=== PATIENT | male | born 1950 | race Caucasian/White ===

== ENCOUNTER 2018-08-30 11:05 | Emergency (ER) | payer OTHER ==
--- OUTSIDE RECORDS SUMMARY | 2018-08-30 11:08 | XMS REPORT | Clinical Summary ---
:1950 Author Organization [facility] Address [address] [place] [address] Care Team Providers Name Role Phone Tressa Skyler Gayle Primary Care Provider Allergies Not on File Medications Medication Sig Dispensed Refills Start Date End Date Status amLODIPine-benazepril Take 1 capsule 0 Active (LOTREL 5-10) 5-10 mg by mouth daily. per capsule aspirin 81 MG EC tablet Take 81 mg by 0 Active mouth daily. cyanocobalamin (VITAMIN Take 2,000 mcg 0 Active B-12) 2000 MCG tablet by mouth daily. ferrous sulfate (IRON Take 27 mg by 0 Active ORAL) mouth twice a week. Active Problems Not on file Encounters Date Type Specialty Care Team Description 01/13/2018 Abstract Internal Medicine Dolly Zamora after 08/29/2017 Social History Tobacco Use Types Packs/Day Years Used Date Never Smoker Smokeless Tobacco: Never Used Alcohol Use Drinks/Week oz/Week Comments Yes 7 Sex Assigned at Date Recorded Not on file Job Start Date Occupation Industry Not on file Not on file Not on file Travel History Travel Start Travel End No recent travel history available. Last Filed Vital Signs Not on file Plan of Treatment Not on file Results Not on fileafter 08/29/2017 Insurance Payer Benefit Plan / Group Subscriber ID Type Phone Address MEDICARE MEDICARE A B xxxxxxxxxx Medicare AETNA - MGD CARE AETNA HMO POS QPOS xxxxxxxxxx HMO/POS
--- OUTSIDE RECORDS SUMMARY | 2018-08-30 11:09 | XMS REPORT | Continuity of Care Document ---
:1950 Author Organization Interface Problems Problem Status Onset Classification Date Comments Source Date Reported R31.2 - OTHER Active [facility] MICROSCOPIC HEMATURIA 017 [place] ROTATOR CUFF SYNDROME, Active Condition 04/23/2014 RIGHT 014 [facility] FRACTURE, FINGER Inactive Condition 04/23/2014 014 Medical Group Rotator cuff Active Problem 08/04/2018 Data syndrome<sup>4</sup> 014 migrated Medical from [facility], [facility] on 08/17/14. [place] ARTHRITIS, LEFT WRIST Active Condition 04/23/2014 013 Medical Group HYPERLIPIDEMIA Active Condition 04/23/2014 013 Medical Group NOCTURIA Active Condition 04/23/2014 013 Medical Group Nocturia<sup>3</sup> Active Problem 08/04/2018 Data 013 migrated Medical from [facility], [facility] on 08/17/14. [place] HYPERTENSION Active Condition 04/23/2014 Medical Group ERECTILE DYSFUNCTION Active Condition 04/23/2014 Medical Group HYPERCHOLESTEROLEMIA Active Condition 04/23/2014 Medical Group Ongoing use of Active Problem 08/04/2018 possibly toxic Medical medication Group, [facility] [place] HTN - Hypertension Active Problem 08/04/2018 Medical Group, [facility] [place] Hypercholesterolemia<s Active Problem 08/04/2018 Data up>1</sup> migrated Medical from [facility], [facility] on 08/17/14. [place] Impotence<sup>2</sup> Active Problem 08/04/2018 Data migrated Medical from [facility], [facility] on 08/17/14. [place] Male erectile Active Problem 08/04/2018 dysfunction Medical Group, [facility] [place] Sciatica [facility]04[facility]2018 [facility] [place] Hematuria Active Problem 08/04/2018 Medical Group Leukopenia Active Problem 08/04/2018 Medical Group Anemia Active Problem 06/10/2016 [facility] [place] Medications Medication Details Route Status Patient Ordering Order Source Instructions Provider Date finasteride 5 mg =1 tab, PO, Active oral tablet Daily, # 90 019 Medical tab, Group Refill(s) 3, Pharmacy: [facility] tadalafil 20 MG 20 mg=1 Active Oral Tablet tab, PO, 019 Medical [Cialis] Daily, PRN Group for erectile dysfunction , Take prior to intercourse , # 13 tab, 3 Refill(s), Pharmacy: [facility] Amlodipine 5 MG 1 cap, PO, Active / Benazepril Daily, # 90 019 Medical hydrochloride 10 caplet, 3 Group MG Oral Capsule Refill(s), Pharmacy: [facility] Iron Iron, See Active Instruction 019 Medical s, 27 mg PO Group Twice Weekly, Refill(s) 0 tadalafil 20 MG 20 mg=1 Active Oral Tablet tab, PO, 018 Medical [Cialis] Daily, PRN Group for erectile dysfunction , Take prior to intercourse , # 13 tab, 3 Refill(s), Pharmacy: [facility] Amlodipine 5 MG See Active / Benazepril Instruction 018 Medical hydrochloride 10 s, TAKE 1 Group MG Oral Capsule CAPSULE DAILY, # 90 tab, 3 Refill(s), Pharmacy: [facility] Dutasteride 0.5 0.5 mg=1 Active MH MG Oral Capsule cap, PO, 017 Medical [Avodart] Daily, # 90 Group cap, 3 Refill(s), Pharmacy: [facility] MELOXICAM 15 MG 1 daily as Active TABS needed for 015 Medical pain/swelli Group ng [facility] FISH OIL 1 po daily Active CAPS 014 Medical Group IRON SUPPLEMENT 1 po twice Active TABS weekly 014 Medical Group CELEBREX 200 MG one tablet No Longer CAPS p.o. daily Active 013 Medical with food Group for pain B-12 500 MCG 1 po daily Active TABS 013 Medical Group LOTREL 5-10 MG one cap by Active CAPS mouth once Medical a day Group ASPIRIN 81 MG one tab by Active TABS mouth once Medical a day Group CIALIS 20 MG as needed Active TABS Medical Group Allergies, Adverse Reactions, Alerts Substance Category Reaction Severity Reaction Status Date Comments Source type Reported No Known Assertion Drug Medication allergy Medical Allergies Group Immunizations Immunization Date Given Site Status Last Comments Source Updated zoster vaccine 11/07/2013 completed [facility] Result Medical live<sup>1</sup> Comment: given Group - [facility]. Migrated from OBS ; Data migrated from [facility] on 04/22/2015. zoster vaccine 11/07/2013 completed GE Result [facility] live<sup>2</sup> Comment: given [place] - [facility]. Migrated from OBS ; Data migrated from [facility] on 04/22/2015. influenza 11/07/2013 completed Medical immunization (Flu Group Vax) has been administered dT (Diphtheria 12/15/2005 completed Medical and Tetanus) Group immunization for children, #1 tetanus-diphtheri 12/15/2005 completed [facility] Result Medical a Comment: td. Group toxoids<sup>2</lynch Migrated from p> OBS ; Data migrated from [facility] on 04/22/2015. tetanus-diphtheri 12/15/2005 completed GE Result [facility] a Comment: td. [place] toxoids<sup>1</lynch Migrated from p> OBS ; Data migrated from [facility] on 04/22/2015. dT (Diphtheria 12/15/2005 completed Medical and Tetanus) Group booster given Results Order Name Results Value Reference Date Interpretation Comments Source Range Abdomen/Pel Abdomen/Pelv Exam: CT abdomen with and without contrast; CT pelvis with and without contrast: 06/07 - [facility] vis w/wo IV is w/wo IV /2016 - [facility] contrast CT contrast CT [place] History: other microscopic hematuria - Hematuria protocol. Read by: Jacqueline Ndiaye MD Dictated Date/time: 06/07/16 14:14 Electronically Signed by: Jacqueline Ndiaye MD 06/07/16 14:23 FINAL REPORT Comparison Study: None . Findings: Without oral contrast administration, contiguous axial sections are obtained through the abdomen and pelvis . Following intravenous administration of 100 cc of Omnipaque 300 ,contiguous axi al sections are obtained through the abdomen and pelvis including delayed imaging ,as per protocol.Sagittal and coronal reformations are obtained. The reported DLP in mGy*cm is 1798 . The visualized lung bases demonstrate a linear 7 x 4 mm parenchymal density in the right lower lobe just above the hemidiaphragm. The kidneys demonstrate no evidence of renal calculi or calcifications . The liver is normal in size, attenuation, enhancement and outline. The spleen is normal in size, attenuation, enhancement and outline. The gallbladder is Normal appearance of the biliary tree, pancreas and adrenal glands are noted. The kidneys demonstrate normal size, shape and outline demonstrating normal enhancement and contrast excretion . Normal appearance of the aorta, IVC and retroperitoneum are noted. The small bowel loops appear normal. The appendix is normal. The colon straight a few scattered diverticuli in the descending and sigmoid colon without evidence of diverticulitis. There is no evidence of free intraperitoneal fluid or air. CT examination of the pelvis demonstrates no evidence of mass or lymphadenopathy. The urinary bladder appears under distended but demonstrates slight wall thickening which could represent cystitis or ma y be secondary to incomplete distention. The prostate and seminal vesicles appear normal. There is no evidence of inguinal lymphadenopathy. Visualized bony structures demonstrate generative disc disease in lower lumbar spine at L4-5 and L5-S1. Mild degenerative changes are seen in the hip joints with subchondral cyst formation along the subcapital portion of the femoral head bilaterally Impression: Diverticulosis of the colon without evidence of diverticulitis. Mild bladder wall thickening versus underdistention. Chemistry CHOLESTEROL 225 mg/dl 120 - 200 04/23 Medical Group Chemistry HDL 131 mg/dl 26 - 62 04/23 Medical Group Chemistry LDL 79 mg/dl 0 - 130 04/23 Medical Group Chemistry SODIUM 140 mmol/L 135 - 143 04/23 Medical Group Chemistry POTASSIUM 5.1 mmol/L 3.3 - 5.0 04/23 Medical Group Chemistry CREATININE 0.69 mg/dL 0.46 - 04/23 1.20 Medical Group Chemistry T4, TOTAL 5.4 ug/dl 5.1 - 11.1 04/23 Medical Group Chemistry TSH 1.64 uIU/mL 0.34 - 04/23 MH 5.60 /2014 Medical Group Chemistry PSA 0.48 ng/mL 0 - 4.0 04/23 Medical Group Hematology HGB 14.3 g/dL 12.3 - 04/23 17.3 Medical Group Hematology HCT 42.6 % 36.7 - 04/23 50.5 Medical Group Chemistry PSA .54 ng/mL 04/28 Medical Group Vital Signs Vital Sign Value Date Comments Source BMI Calculated 26.2 05/02/2018 Medical Group Weight 82.841 05/02/2018 Medical Group Height 177.8 cm 05/02/2018 Medical Group Heart Rate 61 05/02/2018 Medical Group Temperature Oral (F) 98.0 F 05/02/2018 Medical Group Systolic (mm Hg) 101 05/02/2018 Medical Group Diastolic (mm Hg) 57 05/02/2018 Medical Group BMI Calculated 24.16 04/26/2017 Medical Group Weight 76.364 04/26/2017 Medical Group Height 177.8 cm 04/26/2017 Medical Group Temperature Oral (F) 98.1 F 04/26/2017 Medical Group Heart Rate 66 04/26/2017 Medical Group Systolic (mm Hg) 116 04/26/2017 Medical Group Diastolic (mm Hg) 70 04/26/2017 Medical Group Systolic (mm Hg) 152 03/02/2017 Medical Group Diastolic (mm Hg) 80 03/02/2017 Medical Group Temperature Oral (F) 97.9 F 03/02/2017 Medical Group Heart Rate 77 03/02/2017 Medical Group Height 70.0 04/23/2014 Medical Group Weight 176 04/23/2014 Medical Group Temperature Oral (F) 97.8 F 04/23/2014 Medical Group Heart Rate 60 04/23/2014 Medical Group Systolic (mm Hg) 146 04/23/2014 Medical Group Diastolic (mm Hg) 90 04/23/2014 Medical Group Height 70.0 04/24/2013 Medical Group Weight 172 04/24/2013 Medical Group Temperature Oral (F) 98.2 F 04/24/2013 Medical Group Heart Rate 60 04/24/2013 Medical Group Systolic (mm Hg) 118 04/24/2013 Medical Group Diastolic (mm Hg) 76 04/24/2013 Medical Group Weight 166 12/12/2012 Medical Group Height 70 04/25/2012 Medical Group Weight 166 04/25/2012 Medical Group Temperature Oral (F) 98.7 F 04/25/2012 Medical Group Heart Rate 64 04/25/2012 Medical Group Systolic (mm Hg) 130 04/25/2012 Medical Group Diastolic (mm Hg) 78 04/25/2012 Medical Group Encounters Location Location Encounter Encounter Reason Attending ADM DC Status Source Details Type Number For Provider Date Date Visit [facility] Report [id number] Skyler 04/23 04/23 [place] [facility] [address] [facility] Sandra Cordova MD Group Internal Medicine Outpatient [id number] 06/29 [facility] [id number] 04/27 Active [facility] 1 [facility] [id number] ROGER 05/11 Active [facility] 4 [facility] [id number] KATHLEEN 05/25 Active [facility] 5 [facility] Outpt Diag [id number] Nighat Teykl 06/07 06/08 [facility] [place] Outpatient [id number] KATHLEEN 06/23 Active [facility] 0 [facility] [id number] ROGER 06/28 Active [facility] 8 [facility]patient [id number] KATHLEEN 06/29 Active [facility] 9 [facility]patient [id number] ROGER 07/01 Active [facility] 3 [facility] Outpatient [id number] KATHLEEN 08/17 Active [facility] 4 [facility]patient [id number] KATHLEEN 08/31 Active [facility] 7 [facility]patient [id number] KATHLEEN 09/28 Active [facility] 1 [facility] Outpatient [id number] KATHLEEN 03/02 Active [facility] 5 [facility] Outpatient [id number] Kathleen 03/02 03/03 Urology 5 Medical [facility] Outpatient [id number] 04/26 [facility] [id number] Roger 04/26 04/27 Internal 3 [facility] Phone [id number] 08/18 08/20 [facility] [id number] 04/26 04/28 Internal Message Medical [facility] Group [facility] Outpatient [id number] 05/02 [facility] Outpatient [id number] Skyler 05/02 05/[address] [facility] Medicine Group [place] [facility] Phone [id number] 08/01 08/03 Urology Message Medical [facility] Outpatient [id number] 05/01 [facility] Procedures Procedure Code Date Perfomer [place] [address] 03/02/2017 Medical post-voiding Group residual urine and/or bladder capacity by ultrasound, non-imaging Capsule endoscopy [id number] 07/01/2016 Medical Group Knee replacement [id number] 09/28/2011 Medical Group Knee replacement [id number] 09/28/2011 [facility] [place] colonoscopy [id number] 04/16/2008 04/16/2008 Medical Group
--- OUTSIDE RECORDS SUMMARY | 2018-08-30 11:09 | XMS REPORT | Continuity of Care Document ---
:1950 Author Organization [facility] Care Team Providers Name Role Phone MD Tressa, Skyler Unavailable Unavailable Insurance Providers Payer name Policy type / Policy ID Covered alliance party ID Policy Hunter Coverage type AETNA PPO PRIMARY [id number] AETNA PPO PRIMARY [id number] AETNA - [place] MOBIL - CHOICE (POS II) AETNA - [place] MOB[place] - CHOICE (POS II) AETNA - [place] MOB[place] - CHOICE (POS II) AETNA - [place] MOBIL - CHOICE (POS II) MEDIC[place] B-[place]: [employer] Encounters Encounter Performer Location Date Lab Report Skyler Bustillos MD [facility] Apr 23, 2014 Internal Medicine Problems Problem Effective Dates Problem Status HYPERTENSION Active ERECTILE DYSFUNCTION Active HYPERLIPIDEMIA Apr 25, 2012 Active NOCTURIA Apr 25, 2012 Active ARTHRITIS, LEFT WRIST Dec 12, 2012 Active HYPERCHOLESTEROLEMIA Active ROTATOR CUFF SYNDROME, RIGHT Apr 24, 2013 Active FRACTURE, FINGER Apr 24, 2013 Active Procedures Date Description Comments Apr 25, 2012 smoking status never smoker Apr 16, 2008 colonoscopy 04/16/2008 Apr 24, 2013 smoking status never smoker Medications Medication Instructions Start Date Status LOTREL 5-10 MG CAPS one cap by mouth once a day Active ASPIRIN 81 MG TABS one tab by mouth once a day Active CIALIS 20 MG TABS as needed Active B-12 500 MCG TABS 1 po daily Apr 25, 2012 Active CELEBREX 200 MG CAPS one tablet p.o. daily with food for pain Dec 12, 2012 [facility] [facility] O[facility] CAPS 1 po daily Apr 24, 2013 Active Immunizations Vaccine Date Status influenza immunization (Flu Vax) has been administered Nov 07, 2013 completed dT (Diphtheria and Tetanus) booster given Dec 15, 2005 completed dT (Diphtheria and Tetanus) immunization for children, #1 Dec 15, 2005 completed influenza immunization (Flu Vax) has been administered Nov 07, 2013 completed Vital Signs Date Description Test Result Apr 25, 2012 height E&M - 8302-2 HEIGHT 70 in Apr 25, 2012 weight E&M - 3141-9 WEIGHT 166 lb Apr 25, 2012 temperature E&M TEMPERATURE 98.7 deg f Apr 25, 2012 pulse rate E&M - 8867-4 PULSE RATE 64 /min Apr 25, 2012 blood pressure, systolic - 8480-6 BP SYSTOLIC 130 mm Hg Apr 25, 2012 blood pressure, diastolic - 8462-4 BP DIASTOLIC 78 mm Hg Dec 12, 2012 weight E&M - 3141-9 WEIGHT 166 lb Apr 24, 2013 height E&M - 8302-2 HEIGHT 70.0 in Apr 24, 2013 weight E&M - 3141-9 WEIGHT 172 lb Apr 24, 2013 temperature E&M TEMPERATURE 98.2 deg f Apr 24, 2013 pulse rate E&M - 8867-4 PULSE RATE 60 /min Apr 24, 2013 blood pressure, systolic - 8480-6 BP SYSTOLIC 118 mm Hg Apr 24, 2013 blood pressure, diastolic - 8462-4 BP DIASTOLIC 76 mm Hg Apr 23, 2014 height E&M - 8302-2 HEIGHT 70.0 in Apr 23, 2014 weight E&M - 3141-9 WEIGHT 176 lb Apr 23, 2014 temperature E&M TEMPERATURE 97.8 deg f Apr 23, 2014 pulse rate E&M - 8867-4 PULSE RATE 60 /min Apr 23, 2014 blood pressure, systolic - 8480-6 BP SYSTOLIC 146 mm Hg Apr 23, 2014 blood pressure, diastolic - 8462-4 BP DIASTOLIC 90 mm Hg Results Date Description Test Name Value Reference Interpretation Status Apr 23, hemoglobin, blood HGB 14.3 g/dL 12.3-17.3 2014Apr 23, hematocrit, blood HCT 42.6 % 36.7-50.5 2014Apr 28, prostate specific PSA .54 ng/mL 2012 antigen Apr 23, cholesterol, serum CHOLESTEROL 225 mg/dl 120-200 High 2014Apr 23, HDL cholesterol, HDL 131 mg/dl 26-62 High 2015 serum Apr 23, LDL cholesterol, LDL 79 mg/dl 0-130 2014 serum Apr 23, sodium, serum SODIUM 140 mmol/L [phone] Apr 23, potassium, serum POTASSIUM 5.1 mmol/L 3.3-5.0 High 2014Apr 23, creatinine, serum CREATININE 0.69 mg/dL 0.46-1.20 2014Apr 23, thyroxine, serum, T4, TOTAL 5.4 ug/dl 5.1-11.1 2014 total Apr 23, thyroid TSH 1.64 uIU/mL 0.34-5.60 2014 stimulating hormone, serum Apr 23, prostate specific PSA 0.48 ng/mL 0-4.0 2014 antigen
--- OUTSIDE RECORDS SUMMARY | 2018-08-30 11:10 | XMS REPORT | Summary of Care ---
:1950 Author Organization [facility] [place] Address [address] [place] [address]- Encounter HQ Cecelia_stuart(FIN) [id number] Date(s): 05/02/18 - 05/02/18 [facility] [place] [address] [place] [address]- [phone] Discharge Disposition: Home or Self Care Attending Physician: Skyler Bustillos MD Vital Signs Most recent to oldest [Reference Range]: 1 Height 177.8 cm (05/02/18 8:34 AM) Temperature Oral [96.4-99.1 DegF] 98.0 DegF (05/02/18 8:34 AM) Blood Pressure [90-140/60-90 mmHg] 101/57 mmHg (05/02/18 8:34 AM) Peripheral Pulse Rate [60-100 bpm] 61 bpm (05/02/18 8:34 AM) Weight 82.841 kg (05/02/18 8:34 AM) Body Mass Index 26.2 m2 (05/02/18 8:34 AM) Problem List Condition Effective Dates Status Health Status Informant Ongoing use of possibly toxic Active medication(Confirmed) Hematuria(Confirmed) Active HTN - Hypertension(Confirmed) Active Hypercholesterolemia1 Active Impotence2 Active Leukopenia(Confirmed) Active Nocturia3 04/25/12 Active Male erectile dysfunction(Confirmed) Active Rotator cuff syndrome4 04/24/13 Active Sciatica(Confirmed) Active 1Data migrated from [facility] on 08/17/14.2Data migrated from [facility] on 08/17/14.3Data migrated from [facility] on 08/17/14.4Data migrated from [facility] on 08/17/14. Allergies, Adverse Reactions, Alerts Substance Reaction Severity Status NKDA Active Medications amLODIPine-benazepril 5 mg-10 mg oral capsule 1 cap, PO, Daily, # 90 caplet, 3 Refill(s), Pharmacy: [facility] Start Date: 05/02/18 Status: OrderedCialis 20 mg oral tablet 20 mg=1 tab, PO, Daily, PRN for erectile dysfunction, Take prior to intercourse , # 13 tab, 3 Refill(s), Pharmacy: [facility] Start Date: 05/02/18 Status: OrderedIron Iron, See Instructions, 27 mg PO Twice Weekly, Refill(s) 0 Start Date: 05/02/18 Status: Ordered Results No data available for this section Immunizations Given and Recorded Vaccine Date Status Refusal Reason zoster vaccine live1 11/07/13 Given tetanus-diphtheria toxoids2 12/15/05 Given 1Result Comment: given - [facility]. Migrated from OBS ; Data migrated from [facility] on 04/22/2015.2Result Comment: td. Migrated from OBS ; Data migrated from [facility] on 04/22/2015. Procedures Procedure Date Related Diagnosis Body Site Status Capsule endoscopy 07/01/16 Completed Knee replacement 09/28/11 Completed Social History Social History Type Response Smoking Status Never smoker; Exposure to Tobacco Smoke None; Cigarette Smoking Last 365 Days No; Reg Smoking Cessation Counseling No entered on: 05/02/18 Assessment and Plan No data available for this section
--- OUTSIDE RECORDS SUMMARY | 2018-08-30 11:10 | XMS REPORT | Summary of Care ---
:1950 Author Organization [facility] Address [address] [address] Care Team Providers Name Role Phone Skyler Bustillos Primary Care Physician Encounter HQ Hetal(FIN) [id number] Date(s): 08/01/18 - 08/02/18 [facility] [address] [place] [phone] Vital Signs No data available for this section Problem List Condition Effective Dates Status Health [...] [facility]ricity on 08/17/14. Allergies, Adverse Reactions, Alerts No Known Medication Allergies Medications finasteride 5 mg oral tablet =1 tab, PO, Daily, # 90 tab, Refill(s) 3, Pharmacy: [facility] Start Date: 08/01/18 Status: Ordered Results No data available for this section Immunizations Given and Recorded Vaccine Date Status Refusal Reason zoster vaccine live1 11/07/13 Given tetanus-diphtheria toxoids2 12/15/05 Given 1Result Comment: [facility] - [facility]. Migrated from OBS ; Data migrated from [employer] on 04/22/2015.2Result Comment: td. Migrated from OBS ; Data migrated from [facility] on 04/22/2015. Procedures Procedure Date Related Diagnosis Body Site Status Capsule endoscopy 07/01/16 Completed Knee replacement 09/28/11 Completed Social History Social History Type Response Smoking Status Never smoker; Exposure to Tobacco Smoke None; Cigarette Smoking Last 365 Days No; Reg Smoking Cessation Counseling No entered on: 05/02/18 Assessment and Plan No data available for this section
--- OUTSIDE RECORDS SUMMARY | 2018-08-30 11:10 | XMS REPORT | Continuity of Care Document ---
:1950 Author Organization [facility] Care Team Providers Name Role Phone MD Tressa, Skyler Unavailable Unavailable Insurance Providers Payer name Policy type / Policy ID Covered republican ID Policy Hunter Coverage type AETNA PPO PRIMARY [id number] AETNA PPO PRIMARY [id number] AETNA - [place] MOB[place] - CHOICE (POS II) AETNA - [place] M[place] - CHOICE (POS II) AETNA - [place] M[place] - CHOICE (POS II) AETNA - [place] MOB[place] - CHOICE (POS II) MEDIC[place] B-[place]: [employer] Encounters Encounter Performer Location Date Lab Report Skyler Bustillos MD [facility] Apr 23, 2014 Internal Medicine Problems Problem Effective Dates Problem Status HYPERTENSION Active ERECTILE DYSFUNCTION Active HYPERLIPIDEMIA Apr 25, 2012 Active NOCTURIA Apr 25, 2012 Active ARTHRITIS, LEFT WRIST Dec 12, 2012 Active HYPERCHOLESTEROLEMIA Active ROTATOR CUFF SYNDROME, RIGHT Apr 24, 2013 Active FRACTURE, FINGER Apr 24, 2013 Inactive Procedures Date Description Comments Apr 25, 2012 smoking status never smoker Apr 16, 2008 colonoscopy 04/16/2008 Apr 24, 2013 smoking status never smoker Apr 23, 2014 smoking status Never smoker Medications Medication Instructions Start Date Status [...] 1 po daily Apr 24, 2013 Active MELOXICAM 15 MG TABS 1 daily as needed for pain/swelling Apr 23, 2014 Active IRON SUPPLEMENT TABS 1 po twice weekly Apr 24, 2013 Active Immunizations Vaccine Date [...] HDL cholesterol, HDL 131 mg/dl 26-62 High 2014 serum Apr 23, LDL cholesterol, LDL 79 mg/dl 0-130 2014 serum Apr 23, sodium, serum SODIUM 140 mmol/L [phone] Apr 23, potassium, serum POTASSIUM 5.1 mmol/L 3.3-5.0 High 2014Apr 23, creatinine, serum CREATININE 0.69 mg/dL 0.46-1.20 2014Apr 23, thyroxine, serum, T4, TOTAL 5.4 ug/dl 5.1-11.1 2014 total Apr 23, thyroid TSH 1.64 uIU/mL 0.34-5.60 2014 stimulating hormone, serum Apr 23, prostate specific PSA 0.48 ng/mL 0-4.0 2014 antigen
--- OUTSIDE RECORDS SUMMARY | 2018-08-30 11:10 | XMS REPORT | Summary of Care ---
:1950 Author Organization [facility] [place] Address [address] [place] [address]- Encounter HQ Cecelia_stuart(FIN) [phone] Date(s): 04/26/18 - 04/27/18 [facility] [place] [address] [place] [address]- [phone] Vital Signs No data available for this section Problem List Condition Effective Dates Status Health Status Informant Ongoing use of possibly toxic Active medication(Confirmed) HTN - Hypertension(Confirmed) Active Hypercholesterolemia1 Active Impotence2 Active Nocturia3 04/25/12 Active Male erectile dysfunction(Confirmed) Active Rotator cuff syndrome4 04/24/13 Active Sciatica(Confirmed) Active 1Data migrated from [employer] on 08/17/14.2Data migrated from [employer] on 08/17/14.3Data migrated from [employer] on 08/17/14.4Data migrated from [employer] on 08/17/14. Allergies, Adverse Reactions, Alerts Substance Reaction Severity Status NKDA Active Medications No data available for this section Results No data available for this section Immunizations Given and Recorded Vaccine Date Status Refusal Reason zoster vaccine live1 11/07/13 Given tetanus-diphtheria toxoids2 12/15/05 Given 1Result Comment: given - [facility]. Migrated from OBS ; Data migrated from [employer] on 04/22/2015.2Result Comment: td. Migrated from OBS ; Data migrated from [employer] on 04/22/2015. Procedures Procedure Date Related Diagnosis Body Site Status Capsule endoscopy 07/01/16 Completed Knee replacement 09/28/11 Completed Social History Social History Type Response Smoking Status Never smoker; Exposure to Tobacco Smoke None; Cigarette Smoking Last 365 Days No; Reg Smoking Cessation Counseling No entered on: 04/26/17 Assessment and Plan No data available for this section
--- OUTSIDE RECORDS SUMMARY | 2018-08-30 11:10 | XMS REPORT | Continuity of Care Document ---
:1950 Author Organization [facility] Care Team Providers Name Role Phone MD Tressa, Skyler Unavailable Unavailable Insurance Providers Payer name Policy type / Policy ID Covered green party ID Policy Hunter Coverage type AETNA PPO PRIMARY [id number] AETNA PPO PRIMARY [id number] AETNA - [place] [employer] - CHOICE (POS II) AET[employer] - [place] [employer] - CHOICE (POS II) AETNA - [place] [employer] - CHOICE (POS II) AETNA - [place] [employer] - CHOICE (POS II) MEDIC[id number]: [employer] Encounters Encounter Performer Location Date Lab Report Skyler Bustillos MD [facility] Apr 23, 2014 Internal Medicine Problems Problem [...] Apr 23, sodium, serum SODIUM 140 mmol/L [phone] Apr 23, potassium, serum POTASSIUM 5.1 mmol/L 3.3-5.0 High 2014Apr 23, creatinine, serum CREATININE 0.69 mg/dL 0.46-1.20 2014Apr 23, thyroxine, serum, T4, TOTAL 5.4 ug/dl 5.1-11.1 2014 total Apr 23, thyroid TSH 1.64 uIU/mL 0.34-5.60 2014 stimulating hormone, serum Apr 23, prostate specific PSA 0.48 ng/mL 0-4.0 2014 antigen
--- NOTE | 2018-08-30 12:26 | RAD REPORT ---
EXAM DESCRIPTION: USExtremity Venous Uni Ltd08/30/2018 11:54 am CLINICAL HISTORY: Right leg pain and swelling. COMPARISON: None. FINDINGS: Right common femoral, superficial femoral, popliteal and right posterior tibial veins are compressible and demonstrate augmentation. Doppler demonstrates good flow. A heterogeneous structure is present within the mid right thigh having the appearance of a hematoma. It measures approximately 7 x 1 centimeter IMPRESSION: No evidence of deep venous thrombosis involving the right lower extremity. Right thigh hematoma
--- NOTE | 2018-08-30 12:56 | ER ---
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 Transition of care: patient was not received from another setting of care. Onset of symptoms was August 30, 2018. Risk Assessment: Do you want to hurt yourself or someone else? Patient reports no desire to harm self or others. Initial Sepsis Screen: Does the patient meet any 2 criteria? No. Patient's initial sepsis screen is negative. Does the patient have a suspected source of infection? No. Patient's initial sepsis screen is negative. Care prior to arrival: None. 11:19 Method Of Arrival: Ambulatory 11:19 Acuity: [place] 4 hj Historical: - Allergies: 11:22 No Known Allergies; hj - PMHx: 11:22 Hypertension; hj - PSHx: 11:22 Knee surgery; hj - Immunization history:: Adult Immunizations up to date. - Social history:: Smoking status: Patient/guardian denies using tobacco. - Ebola Screening: : Patient denies exposure to infectious person Patient denies travel to an Ebola-affected area in the 21 days before illness onset. Screenin:50 Abuse screen: Denies threats or abuse. Denies injuries from another. Nutritional ss screening: No deficits noted. Tuberculosis screening: Never had TB. Fall Risk None identified. Assessment: 11:50 General: Appears in no apparent distress. comfortable, Behavior is calm, cooperative. ss Pain: Complains of pain in medial aspect of right thigh and right quadriceps Pain currently is 5 out of 10 on a pain scale. Quality of pain is described as aching, tender, Is continuous. Neuro: Level of Consciousness is awake, alert, obeys commands, Oriented to person, place, time, situation. Cardiovascular: Capillary refill < 3 seconds is brisk in bilateral. Respiratory: Airway is patent Respiratory effort is even, unlabored, Respiratory pattern is regular, symmetrical. Respiratory: Breath sounds are clear bilaterally. Denies cough, shortness of breath labored breathing, pain with respiration, pain with cough, pain with movement, air hunger. GI: Patient currently denies diarrhea, nausea, vomiting. : No signs and/or symptoms were reported regarding the genitourinary system. EENT: Nares are clear Oral mucosa is moist. Throat is clear. Derm: Skin is intact, is healthy with good turgor, Skin is dry, Skin is pink, warm \T\ dry. normal. Musculoskeletal: Circulation, motion, and sensation intact. Range of motion: intact in all extremities, Swelling absent. 12:15 Reassessment: Patient appears in no apparent distress at this time. Patient and/or ss family updated on plan of care and expected duration. Pain level reassessed. Patient is alert, oriented x 3, equal unlabored respirations, skin warm/dry/pink. awaiting US results. Vital Signs: 11:22 BP 137 / 73; Pulse 93; Resp 18; Temp 98.4(TE); Pulse Ox 98% on R/A; Weight 77.11 kg; hj Height 6 ft. 0 in. (182.88 cm); Pain 5/10; 11:22 Body Mass Index 23.06 (77.11 kg, 182.88 cm) hj ED Course: 11:10 Patient arrived in ED. mr 11:21 Triage completed. hj 11:22 Arm band placed on right wrist. hj 11:30 Felisha Leyva FNP-C [facility]. kb 11:30 Epi Mayers MD is Attending Physician. kb 11:50 Radha Vicente, ANDRE is Primary Nurse. ss 11:50 Patient has correct armband on for positive identification. Bed in low position. Call ss light in reach. 11:57 US Extremity Venous Unilateral Ltd In Process Unspecified. EDMS 12:56 Femur Right XRAY In Process Unspecified. EDMS 13:01 No provider procedures requiring assistance completed. Patient did not have IV access ss during this emergency room visit. Administered Medications: No medications were administered Outcome: 12:55 Discharge ordered by . kb 13:01 Discharged to home ambulatory. ss 13:01 Condition: good 13:01 Discharge instructions given to patient, Instructed on discharge instructions, follow up and referral plans. medication usage, Demonstrated understanding of instructions, follow-up care, medications. 13:01 Patient left the ED. ss Signatures: Dispatcher [employer] EDMS Felisha Leyva FNP-C FNP-Fadia Kenton Nitza mr Radha Vicnete RN RN ss Daniel Erickson RN RN hj Corrections: (The following items were deleted from the chart) 11:23 11:22 Pulse 93bpm; Resp 18bpm; Pulse Ox 98% RA; Temp 98.4F Temporal; 77.11 kg; Height 6 hj ft. 0 in.; BMI: 23.0; Pain 5/10; hj
--- NOTE | 2018-08-30 12:56 | EDPHYS ---
Physician Documentation [facility] Name: Zachariah Franks Age: 68 yrs Sex: Male : 1950 Arrival Date: 08/30/2018 Time: 11:10 Bed Treatment Private MD: ED Physician Epi Mayers HPI: 08/30 13:35 This 68 yrs old Male presents to ER via Ambulatory with complaints of Bruise kb on leg. 13:36 The patient presents with a contusion, an injury, swelling, tenderness. The complaints kb affect the medial aspect of right thigh. Context: The problem was sustained outdoors, resulted from a direct blow, iron gate, the patient can fully bear weight, the patient is able to ambulate, without difficulty, Problem is a result from a previous injury: No. Onset: The symptoms/episode began/occurred 5 day(s) ago. Modifying factors: The symptoms are alleviated by nothing. the symptoms are aggravated by nothing. Associated signs and symptoms: Pertinent positives: swelling, Pertinent negatives calf tenderness, fever, nausea, numbness, rash, tingling, vomiting, warmth, weakness. Treatment prior to arrival includes: no previous treatment. Severity of symptoms: At their worst the symptoms were moderate, in the emergency department the symptoms are unchanged. The patient has not experienced similar symptoms in the past. The patient has not recently seen a physician. 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 States it has been swollen and bruised since then. Came in to make sure he didn't have a clot. Historical: - Allergies: 11:22 No Known Allergies; hj - PMHx: 11:22 Hypertension; hj - PSHx: 11:22 Knee surgery; hj - Immunization history:: Adult Immunizations up to date. - Social history:: Smoking status: Patient/guardian denies using tobacco. - Ebola Screening: : Patient denies exposure to infectious person Patient denies travel to an Ebola-affected area in the 21 days before illness onset. ROS: 13:35 Constitutional: Negative for fever, chills, and weight loss, Cardiovascular: Negative kb for chest pain, palpitations, and edema, Respiratory: Negative for shortness of breath, cough, wheezing, and pleuritic chest pain, Abdomen/GI: Negative for abdominal pain, nausea, vomiting, diarrhea, and constipation, Back: Negative for injury and pain, Neuro: Negative for headache, weakness, numbness, tingling, and seizure. 13:35 MS/extremity: Positive for injury or acute deformity, contusion, ecchymosis, swelling, tenderness, of the medial aspect of right thigh. Exam: 13:33 Constitutional: This is a well developed, well nourished patient who is awake, alert, kb and in no acute distress. Head/Face: Normocephalic, atraumatic. Chest/axilla: Normal chest wall appearance and motion. Nontender with no deformity. No lesions are appreciated. Cardiovascular: Regular rate and rhythm with a normal S1 and S2. No gallops, murmurs, or rubs. Normal PMI, no JVD. No pulse deficits. Respiratory: Lungs have equal breath sounds bilaterally, clear to auscultation and percussion. No rales, rhonchi or wheezes noted. No increased work of breathing, no retractions or nasal flaring. Abdomen/GI: Soft, non-tender, with normal bowel sounds. No distension or tympany. No guarding or rebound. No evidence of tenderness throughout. Back: No spinal tenderness. No costovertebral tenderness. Full range of motion. Neuro: Awake and alert, GCS 15, oriented to person, place, time, and situation. Cranial nerves II-XII grossly intact. Motor strength 5/5 in all extremities. Sensory grossly intact. Cerebellar exam normal. Normal gait. 13:33 Musculoskeletal/extremity: Extremities: grossly normal except: noted in the medial aspect of right thigh: contusion, ecchymosis, swelling, tenderness, ROM: intact in all extremities, Circulation is intact in all extremities. Sensation intact. Weight bearing: able to fully bear weight, without difficulty. Vital Signs: 11:22 BP 137 / 73; Pulse 93; Resp 18; Temp 98.4(TE); Pulse Ox 98% on R/A; Weight 77.11 kg; hj Height 6 ft. 0 in. (182.88 cm); Pain 5/10; 11:22 Body Mass Index 23.06 (77.11 kg, 182.88 cm) MDM: 11:32 Patient medically screened. kb 12:54 Data reviewed: vital signs, nurses notes. Data interpreted: Pulse oximetry: on room air kb is 98 %. Interpretation: normal. Test interpretation: by ED physician or midlevel provider: plain radiologic studies, negative for fracture. Counseling: I had a detailed discussion with the patient and/or guardian regarding: the historical points, exam findings, and any diagnostic results supporting the discharge/admit diagnosis, radiology results, the need for outpatient follow up, a family practitioner, to return to the emergency department if symptoms worsen or persist or if there are any questions or concerns that arise at home. 08/30 11:31 Order name: US Extremity Venous Unilateral Ltd; Complete Time: 12:45 kb 08/30 12:18 Order name: Femur Right XRAY; Complete Time: 13:05 kb Administered Medications: No medications were administered Disposition: 18:55 Co-signature as Attending Physician, Epi Mayers MD Available for consultation at ps1 all times. . Disposition: 08/30/18 12:55 Discharged to Home. Impression: Hematoma of right thigh. - Condition is Stable. - Discharge Instructions: Hematoma, [id number]. - Medication Reconciliation Form, Thank You Letter, Antibiotic Education, Prescription Opioid Use form. - Follow up: Emergency Department; When: As needed; Reason: Worsening of condition. Follow up: Private Physician; When: 2 - 3 days; Reason: Recheck today's complaints, Continuance of care, Re-evaluation by your physician. Signatures: Dispatcher [employer] EDAZ Felisha Leyva, MARIA ELENA-C UNHAIRING MACHINE OPERATOR-Radha Isaacs RN RN ss Joaquin, Henry, RN RN Epi Mayers MD MD ps1 Corrections: (The following items were deleted from the chart) 13:01 12:55 08/30/2018 12:55 Discharged to Home. Impression: Hematoma of right thigh. ss Condition is Stable. Forms are Medication Reconciliation Form, Thank You Letter, Antibiotic Education, Prescription Opioid Use. Follow up: Emergency Department; When: As needed; Reason: Worsening of condition. Follow up: Private Physician; When: 2 - 3 days; Reason: Recheck today's complaints, Continuance of care, Re-evaluation by your physician. kb
--- NOTE | 2018-08-30 13:01 | RAD REPORT ---
EXAM DESCRIPTION: RAD - Femur Right - 08/30/2018 12:54 pm CLINICAL HISTORY: Hip and leg pain, history of hematoma COMPARISON: None. FINDINGS: No fracture, dislocation or periosteal reaction noted. No AVN or focal femoral head abnorm ality. Degenerative changes are present along the superior acetabular rim. No air or foreign body in the soft tissues. No periarticular soft tissue abnormality identifiable. Shaft of the femur shows no suspicious finding. Total knee prosthesis in place. No radiographic evidence for loosening. Small ray nt effusion is suspected. No hematoma is seen that is discernible from the surrounding muscles and so ft tissues of the right hemipelvis. IMPRESSION: Right hip degenerative changes are present mild for age. No acute bone, joint or soft ti ssue finding. Right total knee prosthesis with no evidence for loosening. Small joint effusion suspected.
== END 2018-08-30 13:01 | disposition home or self-care (01) ==
LOC: ER 11:05
DX: S70.11XA Contusion of right thigh, initial encounter (principal); I10 Essential (primary) hypertension; W22.8XXA Striking against or struck by other objects, initial encounter; Y93.89 Activity, other specified; Y92.9 Unspecified place or not applicable
CPT/HCPCS: 93971; 99283